=== PATIENT | male | born 1970 | race African-American/Black ===

== ENCOUNTER 2017-04-12 12:56 | Day surgery (SDC) | payer OTHER ==
[2017-04-11 09:09] VITALS: BMI 25.5
[2017-04-12] MEDS ORDERED: PROMETHAZINE HCL 25 MG/1 ML VIAL IVPUSH PRN (15:02)
[2017-04-12] MEDS ORDERED: ONDANSETRON 4 MG/2 ML VIAL IVPUSH PRN (15:02)
[2017-04-12] MEDS ORDERED: LACTATED RINGERS SOLUTION 1,000 ML IV SCH (15:15)
[2017-04-12] MEDS ORDERED: PROPOFOL 20 ML ONE (15:28)
[2017-04-12] MEDS ORDERED: MIDAZOLAM HCL 2 MG/2 ML SINGLE DOSE VIAL ONE (15:28)
[2017-04-12] MEDS ORDERED: LIDOCAINE HCL/PF 2% SDV 5ML VIAL ONE (15:36)
[2017-04-12] MEDS ORDERED: DEXAMETHASONE SOD PHOSPHATE 4 MG/1 ML VIAL ONE (15:45)
[2017-04-12] MEDS ORDERED: ONDANSETRON 4 MG/2 ML VIAL ONE (15:45)
[2017-04-12] MEDS ORDERED: ceFAZolin SODIUM 1 GM VIAL ONE (15:45)
[2017-04-12] MEDS ORDERED: SODIUM CHLORIDE 0.9% P/F 10 ML VIAL IJ ONE (15:45)
[2017-04-12] MEDS ORDERED: ceFAZolin SODIUM 1 GM VIAL IVPB ONE (15:46)
[2017-04-12] MEDS ORDERED: KETOROLAC TROMETHAMINE 30 MG/1 ML VIAL IVPUSH ONE (16:30)
[2017-04-12] MEDS ORDERED: KETOROLAC TROMETHAMINE 30 MG/1 ML VIAL ONE (16:53)
[2017-04-12 17:25] VITALS: TEMP 97.8
[2017-04-12 18:25] VITALS: BP 132/82; PULSE 59
--- NOTE | 2017-04-13 06:13 | HP ---
DATE OF ADMISSION: HISTORY: The patient is a 47-year-old male with a history of right flank pain colicky in nature. Also had some frequency and dysuria. Denies any previous episodes. CAT scan of the abdomen revealed a right hydronephrosis with a right mid ureteral stone. The patient denies any previous stone history. He does have history of dyslipidemia for which he takes a statin. PAST MEDICAL HISTORY: He denies any past medical history. He denies diabetes or hypertension. PAST SURGICAL HISTORY: He denies any past surgical history. SOCIAL HISTORY: He does smoke cigarettes and drinks socially. PHYSICAL EXAMINATION: General: Reveals a well-developed well-oriented male in no apparent distress. Abdomen: Soft. There is right CVA tenderness. Genitalia: Atraumatic. Testes are normal in size and consistency. No hernias or hydroceles are elicited. Prostate is 2+, smooth, benign, and nontender. The patient had a medical clearance, which revealed a BUN 60 and creatinine over 1.1. His cholesterol was 245, triglycerides 281. Liver enzymes are all normal. CBC revealed a white count of 4.9, hemoglobin 13.7, hematocrit 42.8, platelets 284. The PT 12, INR 1. The patient's PSA is 0.7, glycosylated hemoglobin 4.8. IMPRESSION: At present is: 1. Right hydronephrosis. 2. Right ureteral stone. PLAN: Cystourethroscopy, right retrograde pyelogram, right ureteroscopic laser lithotripsy, and placement of a right JJ stent. Procedure explained fully to patient, and he agrees. Jorge [id number]
--- NOTE | 2017-04-13 06:21 | OP ---
DATE OF OPERATION: 04/12/2017 PREOPERATIVE DIAGNOSIS: Right hydronephrosis, right ureteral stone. POSTOPERATIVE DIAGNOSIS: Impacted right ureteral stone with right hydronephrosis. OPERATIVE PROCEDURE: Cystourethroscopy, right retrograde pyelogram, right ureteroscopy and stone manipulation, and right JJ stent placement. ANESTHESIA: General. DESCRIPTION OF PROCEDURE: Under above-stated anesthesia, the patient was prepped and draped in the usual sterile manner. He was placed in the dorsal lithotomy position. A continuous flow cystoscope was introduced under direct vision. Anterior urethra was within normal limits. Prostatic urethra revealed bilobar hypertrophy of the prostate. Verumontanum was injected. The bladder was entered, and urine was collected for culture as well as analysis. The bladder revealed a grade 1 trabeculation. No lesions were noted. No calculi were seen. Ureteral orifices were within normal limits. Efflux of clear urine was seen from the right side. None was seen from the right. A Flexi-Tip catheter was placed into the right ureteral orifice, and approximately 7 mL of contrast material was injected. Multiple x-rays revealed an obstruction at the upper portion of the lower third of the ureter. There was proximal hydroureteronephrosis. No other filling defects or obstructions were seen. A Glidewire was then passed up the right renal unit. X-rays confirmed good position. Cystoscope was removed. A semi-rigid ureteroscope was inserted. Ureteroscopy was then performed in the usual fashion. Lower ureter was within normal limits. The mid ureter revealed a stone intact in the entire lumen. Attempt at laser lithotripsy was unsuccessful because of stone dislodgement more proximally. 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 The stone was then able to be visualized. Therefore, the ureteroscope was removed. A 24-cm 6-Faroese JJ stent was left in place. X-rays confirmed good position of the stent. The patient tolerated the procedure well. He returned to the recovery room in good condition. Jorge [id number]
--- NOTE | 2017-04-17 15:02 | PATH ---
Cytology Non-Gynecological Report Patient Name: GIANA BROWN [facility]. Rec. #: [id number] /Age/Gender: 1970 (Age: 47) / M Account: [id number] Location: [facility] SURGICAL Taken: 04/12/2017 Received: 04/15/2017 Reported: 04/17/2017 Physicians: Bertram Posada M.D. Specimen(s) Received URINE Clinical History Hydronephrosis with renal and ureteral calculi Final Diagnosis URINE FOR CYTOLOGY: SATISFACTORY FOR EVALUATION. NEGATIVE FOR HIGH GRADE UROTHELIAL CARCINOMA. SCATTERED UROTHELIAL CELLS AND RARE SQUAMOUS EPITHELIAL CELLS PRESENT. RED BLOOD CELLS PRESENT. MANY UROTHELIAL FRAGMENTS PRESENT. SEE COMMENT. Comment: Urothelial fragments are suggestive of prior instrumentation, lithiasis, or a low grade papillary neoplasm. Suggest clinical/radiologic correlation. Electronically Signed Sveta Mcduffie M.D. Gross Description Approximately 50 cc of yellow fluid received fresh. Two cytofunnels prepared.
== END 2017-04-12 18:27 | disposition home or self-care (01) ==
LOC: JASU-SURG 12:56
PROVIDERS: ATTEND Urology
PROC: BT1FZZZ Fluoroscopy of Left Kidney, Ureter and Bladder (ICD-10-PCS; 2017-04-12)
PROC: 0T768DZ Dilation of Right Ureter with Intraluminal Device, Via Natural or Artificial Opening Endoscopic (ICD-10-PCS; principal; 2017-04-12 15:00)
DX: N13.2 Hydronephrosis with renal and ureteral calculous obstruction (principal)
CPT/HCPCS: 76000-TC; 94760